=== PATIENT | female | born 1990 | race Caucasian/White ===

== ENCOUNTER 2017-01-07 11:08 | Emergency (ER) | payer OTHER ==
[~2017-01-07] VITALS: Ht 167.6 cm; Wt 65.9 kg
[2017-01-07 11:20] VITALS: BP 129/82; PULSE 55; RESP 10; O2SAT 98
--- NOTE | 2017-01-07 11:34 | ED.REPORT ---
HPI-Extremity Problem Upper Date of Service Jan 07, 2017 ED Provider: History of Present Illness: cut finger while making a sandwhich at home around 1030. Tdap 2 years ago. right hand dominant. Cut left thumb. 08/23. no primary care. Nursing Notes Stated Complaint: LACERATION ON FINGER Chief Complaint: Extremity Trauma Nursing Notes Reviewed: Yes Allergies: Coded Allergies: Sulfa (Sulfonamide Antibiotics) (Verified Allergy, Intermediate, hives, ) General Time Seen by MD: 11:33 Chief Complaint Finger injury left 1 Hx Obtained From: Patient Onset Occurred: 1 - 4 hours ago Symptom Duration: Since onset Past Medical History Past Medical History Denies: Asthma, Diabetes mellitus Past Surgical History kidney stone wih stent placement Reports: Appendectomy, Tonsillectomy Smoking History Current Every Day Smoker (1/2 pack a day for 6 years) Social History Alcohol Use: 1-3 per week Drug Use: Denies drug use Occupation lives with parents, work at [employer] as a [employer], [employer] 01/07/2017 Ambulatory Status Independent Review of Systems Basic Review of Systems Eyes: Vision NL, No discharge : No dysuria, No frequency Psychiatric: Normal thought content Physical Exam Initial Vital Signs Vital Signs (First) Date Time Temp Pulse Resp B/P Pulse Ox O2 Delivery O2 Flow Rate FiO2 01/07/17 11:20 36.6 55 10 129/82 98 Room Air Initial VS: Reviewed, Vital signs normal General/Constitutional: Well-developed, Well-nourished Head / Eyes: Atraumatic, Normocephalic, PERRL ENT: Mucous membranes moist, Conjunctiva normal, No scleral icterus Neck: Supple, Non-tender, Full range of motion Respiratory: Breath sounds normal, Clear to auscultation, No respiratory distress Cardiovascular: Regular rate & rhythm, Heart sounds normal, Intact distal pulses Abdomen / GI: Soft, Non-tender, No guarding, No rebound, No distention Back: No CVA tenderness Lymphatic: No lymphadenopathy Lower Extremities: Vascular intact, Neuro intact, No swelling, No tenderness Skin: Warm, Dry, No cyanosis Neurologic: Alert, Oriented, Nonfocal Psychiatric: Mood/affect normal, Behavior normal, Normal thought content General/Constitutional: Awake, Alert, No acute distress, Well appearing, Well developed, Well hydrated, Well nourished, Cooperative, Not toxic appearing Respiratory / Chest: Breath sounds NL, Breath sounds = bilat, No respiratory distress, No rales, No rhonchi, No wheezing Cardiovascular: Heart rate NL, Regular rhythm, Heart sounds NL Upper Extremity / MS: Atraumatic, Inspection NL, Full range of motion, No swelling left thumb has 2 cm laceration on lateral aspect of finger. Sensation intact distally, cap refill less then 2 sec. Full range of motion. no active bleeding Procedures Laceration Management Time: 11:50 Procedure Performed by: Allied health pract Consent / Setup / Site Prep: Informed consent provided, Consent from patient , Hand hygiene observed, Stand sterile technique Location of Wound: left thumb, lateral aspect Wound Length: 2 cm Local Anesthesia: Lidocaine 1% Digital Block: Yes Digit Involved: Thumb left Wound Preparation: Normal saline Debridement: None Irrigation: 200 cc Repair Skin: ___ O (5), Nylon # Sutures - Skin: 5 Closure Layers: 1 Suture Technique: Simple Post-Procedure / Complications: Antibiotic oint applied, Dressing applied, No complications, Condition improved, Tolerated procedure well, Patient stable Re-Eval/Medical Decision Med Decision/Clinical Course 26 year olf female presents to the ER for 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 tDAP is up to date. No sign of tendon damage or compartment syndrome. Discharge & Departure Impression: Primary Impression: Finger laceration Encounter type: initial encounter Qualified Code: S61.219A - Laceration without foreign body of unspecified finger without damage to nail, initial encounter Disposition: Home Patient Instructions: Finger Laceration (ED) Additional Instructions: The laceration has been repaired with 5 sutures. Keep dry for 24 hours. Briefly wet after that. Sutures out here in 10 to 12 days. Apply bacitracin daily. Keep covered during the day. Keep covered at night for 3 or 4 nights then keep open to the air. Use ibuprofen 800 mg if needed for any discomfort. Need to establish in primary care, consider the residency clinic. Referrals: [facility] Res[facility] EDSupervising Provider for APC: Haider Huff MD copies to: [facility] Jessica Hernandez Jan 07, 2017 11:34
== END 2017-01-07 12:36 | disposition home or self-care (01) ==
LOC: SED 11:08
DX: S61.012A Laceration without foreign body of left thumb without damage to nail, initial encounter (principal); W26.0XXA Contact with knife, initial encounter; Y93.G1 Activity, food preparation and clean up; Y99.8 Other external cause status; Y92.000 Kitchen of unspecified non-institutional (private) residence as the place of occurrence of the external cause; F17.200 Nicotine dependence, unspecified, uncomplicated; Z90.89 Acquired absence of other organs; Z87.442 Personal history of urinary calculi; Z88.2 Allergy status to sulfonamides